=== PATIENT | male | born 1955 | race Caucasian/White ===

== ENCOUNTER 2017-04-03 16:43 | Emergency (ER) | payer BC ==
[~2017-04-03] VITALS: Ht 182.9 cm; Wt 91.4 kg
[~2017-04-03 16:43] MED LIST: ALTACE2.5 M1; DIOVAN40 MG; PRILOSEC20 MG
[2017-04-03 17:09] LABS: MCH 30.1 PG (29.0-34.0); MCHC 34.3 G/DL (30.0-36.0); MCV 87.9 FL (86-99); MEAN PLAT.VOLUME 9.1 uM^3 (9.0-12.4); PLATELET COUNT 453 K/uL (156-360); RBC DIS.WIDTH-SD 38.5 % (39-53); RED BLOOD COUNT 5.35 M/uL (4.00-5.50); WHITE BLOOD COUNT 10.3 K/uL (4.1-10.2)
[2017-04-03 17:31] LABS: TROP-I INTERPRETATION NEGATIVE; TROPONIN-I < 0.01 ng/mL (0.0-0.30)
[2017-04-03 17:46] LABS: CHLORIDE 102 mEq/L (99-109); POTASSIUM 3.5 mEq/L (3.7-5.4); SODIUM 140 mEq/L (136-147)
[2017-04-03 17:48] LABS: GLUCOSE 97 mg/dL (70-99)
[2017-04-03 17:49] LABS: ANION GAP 12 MEQ/L (2-14)
[2017-04-03 17:52] LABS: GFR ESTIMATE (CALCULATED) > 59 mL/min/; UREA NITROGEN (BUN) 16 mg/dL (9-23)
[2017-04-03 18:46] VITALS: BP 133/92
== END 2017-04-03 18:48 | disposition home or self-care (01) ==
LOC: EME 16:43
DX: R07.9 Chest pain, unspecified (principal); M79.602 Pain in left arm; I10 Essential (primary) hypertension; E78.5 Hyperlipidemia, unspecified; K21.9 Gastro-esophageal reflux disease without esophagitis; Z72.0 Tobacco use
CPT/HCPCS: 71020; 80048; 84484; 85027; 93005; 99281; 99283